=== PATIENT | male | born 1965 ===

== ENCOUNTER 2017-12-29 10:18 | Emergency (ER) | payer BC, OTHER ==
[2017-12-29 11:30] VITALS: BP 128/82
[2017-12-29] MEDS ORDERED: Ibuprofen ADULT LIQ* 600 MG/30 ML UDC PO ONE (12:12)
--- NOTE | 2017-12-29 12:23 | UC ---
General HPI - HPI Summary HPI Summary: pt states " I got this from my kids". he notes it began with a sore throat then head and chest congestion. also c/o chills, bodyaches and diarrhea. no sob or cp. is at times wheezy. no nausea but on occasion will cough and feel like he will vomit. - History of Current Complaint Chief Complaint: UCGeneralIllness Stated Complaint: ACHY,COUGH,FEVER Time Seen by Provider: 12/29/17 12:05 Hx Obtained From: Patient Onset/Duration: Sudden Onset Timing: Constant Pain Intensity: 4 Associated Signs & Symptoms: Positive: Cough, Fever, Nausea, Wheezing. Negative : Chest Pain, Dysuria, Headache, SOB - Allergy/Home Medications Allergies/Adverse Reactions: Allergies Allergy/AdvReac Type Severity Reaction Status Date / Time No Known Allergies Allergy Verified 12/29/17 11:23 Home Medications: Home Medications Lisinopril/HCTZ 07/24.5(NF) [Zestoretic 07/24.5(NF)] 12/29/17 [History] PMH/Surg Hx/FS Hx/Imm Hx Previously Healthy: Yes - Surgical History Surgical History: Yes Surgery Procedure, Year, and Place: TONSILS - Social History Occupation: Employed Full-time Lives: With Family Alcohol Use: Weekly Substance Use Type: None Smoking Status (MU): Former Smoker Amount Used/How Often: 1 CAN A WEEK Have You Smoked in the Last Year: No Review of Systems Constitutional: Fever, Chills Skin: Negative Eyes: Negative ENT: Sore Throat, Nasal Discharge Respiratory: Cough Cardiovascular: Negative Gastrointestinal: Diarrhea, Nausea Genitourinary: Negative Motor: Negative Neurovascular: Negative Musculoskeletal: Negative Neurological: Negative Psychological: Negative Is Patient Immunocompromised?: No All Other Systems Reviewed And Are Negative: Yes Physical Exam Triage Information Reviewed: Yes Appearance: Ill-Appearing Vital Signs: Initial Vital Signs Temp 100.1 F 12/29/17 11:20 Pulse 75 12/29/17 11:20 Resp 18 12/29/17 11:20 BP 128/82 12/29/17 11:20 Pulse Ox 98 12/29/17 11:20 Vital Signs Reviewed: Yes Eyes: Positive: Conjunctiva Clear ENT: Positive: Pharynx normal, Nasal congestion, TMs normal. Negative: Nasal drainage, Sinus tenderness Neck: Positive: Supple, Nontender, No Lymphadenopathy Respiratory: Positive: Lungs clear, No respiratory distress, Other: - NPC Cardiovascular: Positive: RRR, No Murmur Abdomen Description: Positive: Nontender, No Organomegaly, Soft Bowel Sounds: Positive: Present Musculoskeletal: Positive: ROM Intact Neurological: Positive: Alert Psychological: Positive: Age Appropriate Behavior Skin Exam: Normal Diagnostics - Laboratory Diagnostic Studies Completed/Ordered: Rapid flu is negative - Radiology No standard instances Xray Interpretation: No Acute Changes Radiology Interpretation Completed By: Radiologist Course/Dx - Course Course Of Treatment: non toxic, cxr unremarkable and rapid flu=neg; however, pt s/s's c/w influenza in community. tx supportive. no indication for antibiotics. need for close f/u and recheck stressed. - Differential Dx - Multi-Symptom Provider Diagnoses: Influenza like illness Discharge - Discharge Plan Condition: Stable Disposition: HOME Patient Education Materials: Influenza (ED) Forms: *Work Release Referrals: Pradeep Ibanez MD [Primary Care Provider] - 3 Days
--- NOTE | 2017-12-29 12:37 | RAD ---
INDICATION: Cough and chills. History of tobacco use. COMPARISON: No relevant prior exams available on the [facility] for comparison. TECHNIQUE: Dual energy PA and routine lateral views of the chest were obtained. REPORT: Mildly elevated lung volumes. Clear lungs and pleural spaces. Negative for pneumothorax. The heart, pulmonary vasculature, and mediastinal contours are unremarkable. Mild anterior compression deformity of the T7 vertebral body without radiographic findings to favor acute fracture. IMPRESSION: Elevated lung volumes suggest obstructive lung disease. No evidence for pneumonia.
== END 2017-12-29 13:00 | disposition home or self-care (01) ==
LOC: UCCORT 10:18
DX: J11.1 Influenza due to unidentified influenza virus with other respiratory manifestations (principal); F17.221 Nicotine dependence, chewing tobacco, in remission
CPT/HCPCS: 71046; 87502; 99201; A9270-GY; G0463

== ENCOUNTER 2019-03-17 16:21 | Emergency (ER) | payer BC ==
[2019-03-17 16:44] VITALS: BP 177/72
--- NOTE | 2019-03-17 17:15 | UC ---
General HPI - HPI Summary HPI Summary: pt awoke this am with the L thumb, index and middle finger numbness and tingling. feels the same in his L forearm into the bicep and shoulder. it you touch it he gets "a needles and pins" discomfort "like it is asleep". states unable to raise his arm above his head because it feesl weak. he has a hx of the same once in the past from a jiu jitsu injury, that resolved without tx. denies any hx of recurrent injury. no associated headache, visual changes, speech disturbances, difficulty with gait or balance issues. - History of Current Complaint Chief Complaint: UCUpperExtremity Stated Complaint: RT HAND/ARM NUMBNESS Time Seen by Provider: 03/17/19 16:54 Hx Obtained From: Patient Pain Intensity: 1 Associated Signs & Symptoms: Negative: Chest Pain, Headache - Allergy/Home Medications Allergies/Adverse Reactions: Allergies Allergy/AdvReac Type Severity Reaction Status Date / Time No Known Allergies Allergy Verified 03/17/19 16:45 Home Medications: Home Medications Naproxen Sodium [Aleve] 440 mg PO ONCE PRN 03/17/19 [History Confirmed 03/17/19] PMH/Surg Hx/FS Hx/Imm Hx Cardiovascular History: Hypertension - pt opts to not tx - Surgical History Surgical History: Yes Surgery Procedure, Year, and Place: TONSILS - Family History Known Family History: Positive: Non-Contributory - Social History Lives: Alone Alcohol Use: Weekly Alcohol Amount: 5-6 Substance Use Type: None Smoking Status (MU): Heavy Every Day Tobacco Smoker Amount Used/How Often: 1 CAN A WEEK Have You Smoked in the Last Year: No Review of Systems All Other Systems Reviewed And Are Negative: Yes Cardiovascular: Negative: Palpitations, Chest Pain Musculoskeletal: Positive: Decreased ROM - Shoulder LUE. Negative: Arthralgia Neurological: Positive: Weakness - LUE, Paresthesia - LUE, Numbness - LUE. Negative: Headache Physical Exam Triage Information Reviewed: Yes Appearance: Well-Appearing Vital Signs: Initial Vital Signs Temp 99.9 F 03/17/19 16:22 Pulse 114 03/17/19 16:22 Resp 18 03/17/19 16:22 BP 177/72 03/17/19 16:22 Pulse Ox 97 03/17/19 16:22 Vital Signs Reviewed: Yes Eyes: Positive: Conjunctiva Clear ENT: Positive: Pharynx normal. Negative: Nasal congestion, Nasal drainage Neck: Positive: Supple, Nontender, No Lymphadenopathy, Other: - C-spine is non tender and ROM is intact. Respiratory: Positive: Lungs clear, Normal breath sounds, No respiratory distress Cardiovascular: Positive: RRR, No Murmur. Negative: Tachycardia Abdomen Description: Positive: Nontender. Negative: Pulsatile Mass Musculoskeletal: Positive: Other: - Back: no gross deformity and spine/back is non tender. ROM is intact. LUE: slight swelling to the thumb index and middle fingers. pt notes able to feel but sensation to light touch of thumb, middle and index fingers is diminished. also diminished sensation to L forearm, bicep and back of the shoulder. 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 5/5 strength, 2+ reflexes and sensation intact BLE's. Sensation intact RUE. Pt has full passive rom L shoulder. Has abduction to 90 degress but unable to raise higher due to weakness. Able to resist drop arm at 90 degrees. Neurological: Positive: Other: - A&Ox3. CN 2-12 grossly intact. Psychological: Positive: Age Appropriate Behavior Skin Exam: Normal Skin: Negative: Rashes - Additional Comments REPEAT BP AT TIME OF EXAM RUE MANUAL CUFF 144/94. Diagnostics - Radiology No standard instances Radiology Interpretation Completed By: Radiologist - #. Negative for fracture. Minimal degenerative retrolisthesis at C5-C6. Negative for facet subluxation at any level. #. Degenerative spondylosis and facet joint osteoarthritis. Severe C5 -C6 and moderate C6-C7 disc space narrowing with associated vertebral endplate osteophytosis. Facet joint osteoarthritis most prominent in the same distribution. #. Uncinate process spurring and facet joint osteoarthritis results in osseous foraminal stenosis at C5-C6 and C6-C7 on the LEFT and less prominent at C3-C4 and C5-C6 on the RIGHT. #. Unremarkable prevertebral soft tissue contours. Course/Dx - Differential Dx - Multi-Symptom Differential Diagnoses: Other - no concern for central cause of LUE complaint. exam and c-spine xray supports cervical radiculopathy. will tx with steroid, PT and f/u pcp. - Diagnoses Provider Diagnosis: Cervical radiculopathy Discharge - Sign-Out/Discharge Documenting (check all that apply): Patient Departure All imaging exams completed and their final reports reviewed: Yes - Discharge Plan Condition: Stable Disposition: HOME Prescriptions: methylPREDNISolone [Medrol Dosepak 4 MG*] 0 mg PO .SEE SUZAN INSTRUCTION #1 tab Patient Education Materials: Cervical Radiculopathy (ED) Referrals: Pradeep Ibanez MD [Primary Care Provider] - As Soon As Possible - Billing Disposition and Condition Condition: STABLE Disposition: Home
== END 2019-03-17 18:41 | disposition home or self-care (01) ==
LOC: UCCORT 16:21
DX: M54.12 Radiculopathy, cervical region (principal); I10 Essential (primary) hypertension; Z91.14 Patient's other noncompliance with medication regimen; F17.220 Nicotine dependence, chewing tobacco, uncomplicated
CPT/HCPCS: 72050; 99212; G0463